=== PATIENT | female | born 1935 | race Caucasian/White ===

== ENCOUNTER 2017-02-27 14:36 | Day surgery (SDC) | payer MEDICARE, OTHER ==
[2017-02-27 16:00] LABS: Hematocrit 37.3 % (37.0-47.0); Hemoglobin 12.3 gm/dL (12.5-16.0); Mean Cell Volume 87.4 fl (78-100); Mean Corpuscular Hemoglobin 28.8 pg (27-31); Mean Platelet Volume 8.9 fl (6.0-9.5); Neutrophil # 3.7 K/mm3 (1.3-6.0); Neutrophil % 70.3 % (42-75.0); Platelet Count 168 K/mm3 (150-450); Red Blood Count 4.27 M/mm3 (4.2-5.4); Red Cell Distribution Width 14.4 % (11.5-14.0); White Blood Count 5.3 K/mm3 (4.0-10.5)
[2017-02-27 16:14] LABS: Prothrombin Time (Patient) 10.7 Seconds (9.0-11.0)
[2017-02-27 16:15] LABS: INR 1.07 INR (0.90-1.10)
--- NOTE | 2017-02-27 16:24 | OR ---
Anesthesia Pre Procedure Eval Date of Service: 02/27/17 Pre Procedure Evaluation: Last Vital Signs Temp 36.9 C 02/27/17 14:51 Pulse 69 02/27/17 14:51 Resp 18 02/27/17 14:51 BP 162/91 02/27/17 14:51 Pulse Ox 97 02/27/17 14:51 Anesthesia Pre Procedure Evaluation DATE: 02/27/2017. TIME: 1615 INDICATIONS: Low back pain and right leg radiculopathy. PAST MEDICAL HISTORY: This 81-year-old female with a history of low back pain in radiculopathy to her right hip and leg. EXAM: MRI report was reviewed. Pain is 10/10 on pain scale at present. ASSESSMENT OF MEDICAL STATUS: Patient is status post breast cancer with chemotherapy. She states that she bruises and bleeds easily. PT INR and CBC were drawn, and results were within acceptable limits for epidural steroid injection O.K. to proceed with YOLANDA. PLANNED PROCEDURE: Worse Guided epidural steroid injection L3-4 Home Medications: HOME MEDICATIONS Unobtainable 02/27/17 [Last Taken Unknown]
[2017-02-27] MEDS ORDERED: DEXAMETHASONE SOD PHOSPHATE 10 MG/ML VIAL IJ ONE (16:37)
[2017-02-27] MEDS ORDERED: IOPAMIDOL 20 ML VIAL IJ ONE ×2 (16:37)
[2017-02-27] MEDS ORDERED: LIDOCAINE HCL/PF 5 ML VIAL IJ ONE (16:37)
--- NOTE | 2017-02-27 17:18 | OR ---
Anesthesia Procedure Note - Anesthesia Procedure Note Date of Service: 02/27/17 Narrative: Vital Signs - Last Taken Temp 36.9 C 02/27/17 14:51 Pulse 76 02/27/17 16:55 Resp 18 02/27/17 16:55 BP 218/104 02/27/17 16:55 Pulse Ox 97 02/27/17 16:55 O2 Oxygen Delivery Method Nasal Cannula 02/27/17 17:16 ANESTHESIA PROCEDURE NOTE Date of Procedure: 02/27/2017. Time of procedure: 1640. Performed by: Milton Poe CRNA Paraprofessional Aide Teacher: None. Preprocedure diagnosis: Low back pain. right leg radiculopathy. Post procedure diagnosis: Same. Procedure: Fluoroscopic guided epidural Steroid Injection L3-4. Indications: This 81-year-old female with a history of low back pain and pain which radiates to her right hip and leg. Potential risks and benefits of the procedure were discussed with the patient and consent was obtained. Findings: See below. Details of the procedure: The patient was brought back to operating room #4. The patient was then placed in the prone position to comfort. DuraPrep was applied to the patient's back. Patient was then draped in sterile fashion. Lidocaine 1% was infiltrated to the skin and subcutaneous tissues at the level of the L3-4 interspace using fluoroscopic guidance. The epidural space was identified using a 20-gauge Tuohy needle with [id number] technique. 1 mL of Isovue contrast was then injected after negative aspiration for blood and CSF. The epidural space was outlined in the AP and lateral views. Preservative free Decadron 10 next mg + 5 mL of 1% preservative-free lidocaine was administered to the epidural space after negative aspiration for blood and CSF. The Tuohy needle was removed intact. A Band-Aid was applied to the patient's back. The patient was then placed in a supine position for 5 minutes before returning to the ambulatory surgical unit. Total fluoroscopy time: [] seconds. Cumulative dose: [] mGy. EBL: Minimal. Fluids: N/A. Specimen: N/A. Post procedure condition: The patient tolerated the procedure well. No complications were noted. No motor weaknesses or paresthesias were noted upon discharge. Thank you for this consultation. Milton Poe CRNA
[2017-02-27 17:43] VITALS: BP 197/89
== END 2017-02-27 14:37 | disposition home or self-care (01) ==
LOC: AMB 14:36
PROVIDERS: ATTEND Family Medicine
PROC: 3E0S3BZ Introduction of Anesthetic Agent into Epidural Space, Percutaneous Approach (ICD-10-PCS; 2017-02-27)
PROC: 3E0S33Z Introduction of Anti-inflammatory into Epidural Space, Percutaneous Approach (ICD-10-PCS; principal; 2017-02-27 15:30)
DX: M54.5 Low back pain (principal); D64.9 Anemia, unspecified; Z68.30 Body mass index [BMI] 30.0-30.9, adult